=== PATIENT | male | born 1950 | race Caucasian/White ===

== ENCOUNTER 2019-06-29 21:25 | Inpatient (IN) | payer OTHER, MEDICAID ==
[~2019-06-29] VITALS: Ht 188 cm; Wt 68.0 kg
[2019-06-29 21:25] VITALS: BP 159/103
[~2019-06-29 21:25] MED LIST: ENAL10TA99 PO; GLU500 PO; [UNRECOGNIZED DRUG - CODE]; [UNRECOGNIZED DRUG - REMARK]; [UNRECOGNIZED DRUG - REMARK]
--- NOTE | 2019-06-29 21:25 | NUR ---
PT TRANSFERRED TO BED #10
[2019-06-29] MEDS ORDERED: NACL 0.9% 1,000 ML IV ONE (21:32)
--- NOTE | 2019-06-29 22:04 | NUR ---
68 Y/O BIBA ALS FROM [facility]. C/O INCREASED GENERALIZED WEAKNESS. PER REPORT FROM COAGULATION OPERATOR, PT IS NOT AT BASELINE, STAFF AT FACILITY STATES PT IS MORE WEAK AND LETHARGIC. PT'S BP WAS HYPOSTENSIVE SIDE SEAM MACHINE OPERATOR. JAUNDICE NOTED. 20G IV STARTED BY COAGULATION OPERATOR ENROUTE ALONG WITH 1L NS BOLUS. PT IS ALERT TO PERSON, PLACE DURING ASSESSMENT. HX OF DEMENTIA, HTN, DM (BS-85 ENROUTE). PT STABLE. ERMD AWARE. WILL CONTINUE TO MONITOR.
[2019-06-29 22:10] LABS: BASOPHILS % (AUTO) 0.4 % (0.0-2.0); EOSINOPHILS # (AUTO) 0.4 K/uL (0-0.4); EOSINOPHILS % (AUTO) 4.5 % (0.0-4.0); HEMATOCRIT 25.3 % (36-52); HEMOGLOBIN 8.5 g/dL (12.0-18.0); LYMPHOCYTES # (AUTO) 1.9 K/uL (2.0-11.5); LYMPHOCYTES % (AUTO) 19.6 % (20.5-51.1); MEAN CORPUSCULAR HEMOGLOBIN 33 pg (27-31); MEAN CORPUSCULAR HGB CONC 34 g/dL (33-37); MEAN CORPUSCULAR VOLUME 96.9 fL (80-94); MONOCYTES # (AUTO) 0.7 K/uL (0.8-1.0); MONOCYTES % (AUTO) 7.4 % (1.7-9.3); NEUTROPHILS # (AUTO) 6.6 K/uL (1.8-7.7); NEUTROPHILS % (AUTO) 68.1 % (42.2-75.2); PLATELET COUNT (AUTO) 100 K/uL (140-450); RED BLOOD CELL COUNT(AUTO) 2.61 MIL/uL (4.20-6.10); RED CELL DISTRIBUTION WIDTH 15.9 % (11.6-13.7); WHITE BLOOD COUNT (AUTO) 9.7 K/uL (4.8-10.8)
--- NOTE | 2019-06-29 22:20 | NUR ---
PERFORMED STRAIGHT CATH. PT TOLERATED PROCEDURE. RECEIVED 80ML RETURN.
[2019-06-29 22:28] LABS: PROTHROMBIN TIME 16.2 secs (10.8-13.4)
--- NOTE | 2019-06-29 22:28 | NUR ---
XRAY AT BEDSIDE
[2019-06-29 22:33] LABS: ALBUMIN 0.9 g/dL (3.4-5.0); ANION GAP 9.1 (8-16); CARBON DIOXIDE 30.6 mmol/L (21-32); CREATININE 0.8 mg/dL (0.7-1.3); TOTAL BILIRUBIN 2.4 mg/dL (0.0-1.0)
--- NOTE | 2019-06-29 22:34 | NUR ---
SPOKE WITH PT'S HOSPICE NURSE JANELL FRAZIER. REQUESTING PT TO BE TRANSFERRED TO [facility]. AGENCY CONTACT #
[2019-06-29 22:37] LABS: POTASSIUM 2.7 mmol/L (3.5-5.1)
[2019-06-29] MEDS ORDERED: KCL 20 MEQ/WATER INJ PREMIX 100 ML IV ONE (22:40)
--- NOTE | 2019-06-29 22:50 | NUR ---
SPOKE WITH PATTY FROM [facility]. UPDATED ABOUT PT'S STATUS.
[2019-06-29 23:03] LABS: APPEARANCE,URINE HAZY (CLEAR); BILIRUBIN,URINE 2+ (NEGATIVE); BLOOD, URINE NEGATIVE (NEGATIVE); COLOR,URINE AMBER (YELLOW); LEUKOCYTE ESTERASE ,URINE NEGATIVE (NEGATIVE); NITRITE, URINE POSITIVE (NEGATIVE); UGLUCOSE TRACE (NEGATIVE)
[2019-06-29] MEDS ORDERED: DEXTROSE 10% 250 ML IV SCH (23:05)
[2019-06-29 23:15] LABS: RBC,URINE 0-5 /HPF (0-5)
[2019-06-29] MEDS ORDERED: MORPHINE SULFATE 2 MG/ML SYR IVP PRN (23:45)
[2019-06-29] MEDS ORDERED: DOCUSATE SODIUM 100 MG GELCAP PO PRN (23:45)
[2019-06-29] MEDS ORDERED: LORazepam 2 MG/ML VIAL IM/IVP PRN (23:45)
[2019-06-29] MEDS ORDERED: ZOLPIDEM 5 MG TAB PO PRN (23:45)
[2019-06-29] MEDS ORDERED: ACETAMINOPHEN 325 MG TAB PO PRN (23:45)
[2019-06-29] MEDS ORDERED: ONDANSETRON 4 MG/2 ML VIAL IM/IVP PRN (23:45)
--- NOTE | 2019-06-30 00:20 | NUR ---
RECEIVED REPORT FROM ED RN JAYDON, FOR PT'S CONTINUITY OF CARE. PT IS AAOX2, IS ON RA, ON TAG CLERK, HAS RIGHT AC 20G SALINE LOCK. VS CHECKED AND CHARTED. EXPLAINED TO PT THE CLINICAL BIOCHEMICAL GENETICIST ROUTINE, PT VERBALIZED UNDERSTANDING, STATES HE JUST WANTS TO REST. WILL MONITOR PT THROUGHOUT SHIFT.
--- NOTE | 2019-06-30 00:20 | NUR ---
PT ADMITTED TO [facility] RM 113. TRANSFERRED PT VIA [facility] WITH [facility]; STABLE CONDITION. REPORT GIVEN TO MATTHEW FRAZIER. PT CARE TRANSFERRED TO RECEIVING RN.
[2019-06-30 00:23] LABS: PHOSPHORUS 3.2 mg/dL (2.5-4.9); THYROID STIMULATING HORMONE 7.52 uIU/mL (0.34-3.74)
[2019-06-30 00:29] LABS: CHOL/HDL RATIO 9.6 (1-4.5)
[2019-06-30] MEDS ORDERED: cefTRIAXone 1,000 MG VIAL ONE (01:03)
[2019-06-30] MEDS: NACL 0.9% 1,000 ML IV SCH ×2 (01:11→16:44)
--- NOTE | 2019-06-30 01:23 | NUR ---
ADMINISTERED SCHEDULED IV ABX AND IV FLUID ORDERED. PT TOLERATED THEM WELL. WILL CONTINUE TO MONITOR PT.
[2019-06-30] MEDS ORDERED: CEPH250C16 PO (02:06)
[2019-06-30] MEDS ORDERED: DOCU-299 PO (02:06)
[2019-06-30] MEDS ORDERED: DULO30EC PO (02:06)
[2019-06-30] MEDS ORDERED: TRAM50TA3 PO (02:06)
[2019-06-30] MEDS ORDERED: LOPE2CAP99 PO (02:06)
[2019-06-30] MEDS ORDERED: ACET-2619 PO (02:06)
[2019-06-30] MEDS ORDERED: MENT1OIN22 TP (02:06)
[2019-06-30] MEDS ORDERED: METR-435 PO (02:06)
[2019-06-30] MEDS ORDERED: MAGN400S60 PO (02:06)
[2019-06-30] MEDS ORDERED: DIVA125E11 PO (02:06)
[2019-06-30] MEDS ORDERED: SERT25TA PO (02:06)
[2019-06-30] MEDS ORDERED: BLOO1STR MC (02:06)
--- NOTE | 2019-06-30 03:00 | NUR ---
MADE ROUNDS, PT LYING DOWN ASLEEP WITH NO SIGNS OF DISTRESS. WILL CONTINUE TO MONITOR PT.
[2019-06-30 04:00] VITALS: BP 125/81
--- NOTE | 2019-06-30 04:00 | NUR ---
PT PULLED IV OUT C/O ITCHING AT THE SITE. WILL REINSERT NEW IV.
--- NOTE | 2019-06-30 04:15 | NUR ---
ASSISTED REHAB TECH IN CHANGING LINENS. VS CHECKED AND CHARTED. PT TOLERATED ACTIVITY WELL.
[2019-06-30] MEDS ORDERED: traMADol 50 MG TAB PO SCH (04:50)
[2019-06-30] MEDS ORDERED: ACETAMINOPHEN 325 MG TAB PO SCH (04:50)
[2019-06-30] MEDS ORDERED: MAG SULF 2000 MG/WATER PREMIX 100 ML IV SCH (04:50)
--- NOTE | 2019-06-30 05:45 | NUR ---
NEW IV SITE: RIGHT FA 24G. ADMINISTERED IV MAGNESIUM ORDERED. WILL CONTINUE TO MONITOR PT.
--- NOTE | 2019-06-30 06:19 | NUR ---
PT LYING DOWN ASLEEP WITH NO SIGNS OF DISTRESS. WILL ENDORSE TO AM SHIFT RN FOR PT'S CONTINUITY OF CARE.
[2019-06-30 06:45] LABS: BASOPHILS % (AUTO) 0.6 % (0.0-2.0); EOSINOPHILS # (AUTO) 0.3 K/uL (0-0.4); EOSINOPHILS % (AUTO) 4.2 % (0.0-4.0); HEMATOCRIT 26.7 % (36-52); LYMPHOCYTES # (AUTO) 1.4 K/uL (2.0-11.5); LYMPHOCYTES % (AUTO) 19.2 % (20.5-51.1); MEAN CORPUSCULAR HEMOGLOBIN 33 pg (27-31); MEAN CORPUSCULAR HGB CONC 34 g/dL (33-37); MEAN CORPUSCULAR VOLUME 96.5 fL (80-94); MONOCYTES # (AUTO) 0.5 K/uL (0.8-1.0); MONOCYTES % (AUTO) 6.8 % (1.7-9.3); NEUTROPHILS # (AUTO) 4.9 K/uL (1.8-7.7); NEUTROPHILS % (AUTO) 69.2 % (42.2-75.2); PLATELET COUNT (AUTO) 92 K/uL (140-450); RED BLOOD CELL COUNT(AUTO) 2.77 MIL/uL (4.20-6.10); RED CELL DISTRIBUTION WIDTH 15.3 % (11.6-13.7)
[2019-06-30] MEDS ORDERED: DEXTROSE 50% 50 ML SYR IVP PRN (07:00)
[2019-06-30] MEDS ORDERED: INSULIN LISPRO SLIDING SCALE 100 UNITS/ML VIAL SUBQ PRN (07:00)
[2019-06-30 07:05] LABS: ANION GAP 10.9 (8-16); CARBON DIOXIDE 30.2 mmol/L (21-32); CREATININE 0.7 mg/dL (0.7-1.3); POTASSIUM 3.1 mmol/L (3.5-5.1)
--- NOTE | 2019-06-30 07:08 | NUR ---
RECEIVED BEDSIDE REPORT FROM RESILIENT TILE INSTALLER NURSE FOR CONTINUITY OF CARE. PATIENT IS AWAKE AND RESTING ON BED AT THIS TIME. PATIENT IS AAOX2 TO NAME, AND PLACE. RESPIRATION EVEN AND UNLABORED ON RA. DENIED PAIN, DIZZINESS AND SOB AT THIS TIME. NO SIGNS OF DISTRESS NOTED. IV ON RFA 24G, WRAP AROUND WITH KERLIX, CLEAN AND INTACT, INFUSING PER MD ORDER. PATIENT IS CONTINENT AND ABLE TO USE THE URANAL BY BEDSIDE. SKIN CLEAN AND DRY. DISCUSSED PLAN OF CARE WITH PATIENT AND PATIENT VERBALIZED UNDERSTANDING. TELE MONITOR ATTACHED. SEIZURE PRECAUTION IN PLACE AND BOTH SIDE RAILS PADDED. FALL RISK PROTOCOL IN PLACE AND BED ALARM ACTIVATED. SAFETY MEASURES IN PLACE. BED IN LOW POSITION AND CALL LIGHT WITHIN REACH. INSTRUCTED PATIENT TO USE THE CALL LIGHT FOR ANY ASSISTANCE AND PATIENT WAS AWARE. Addendum: 06/30/19 at 0754 by Katie Willson RN SKIN NOT INTACT. SCABS THROUGHOUT BODY NOTED, L AND R HEELS WOUNDS NOTED, COVERED WITH OPTIFOARM, DRESSING DRY AND CLEAN.
[2019-06-30] MEDS ORDERED: LORazepam 2 MG/ML VIAL IVP PRN (07:20)
[2019-06-30] MEDS: BLOOD GLUCOSE MONITORING 1 DEV DEV FS SCH ×4 (07:30→20:13)
--- NOTE | 2019-06-30 07:54 | NUR ---
PATIENT HAS BEEN SCREENED AND CATEGORIZED MODERATE NUTRITION RISK. PATIENT WILL BE SEEN WITHIN 3-5 DAYS OF ADMISSION. 07/02/19-07/04/[address] Addendum: 06/30/19 at [address] PATIENT HAS BEEN RESCREENED AND RE-CATEGORIZED HIGH NUTRITION RISK. PATIENT WILL BE SEEN WITHIN 1-3 DAYS OF ADMISSION. 06/30/19-07/01/19- MAHSA PATEL RD
[2019-06-30 08:00] VITALS: BP 127/83
[2019-06-30 08:29] LABS: IRON, SERUM 43 ug/dl (50-175); TOTAL IRON BINDING CAPACITY < 36 ug/dl (250-450)
[2019-06-30] MEDS ORDERED: DULoxetine 30 MG CAPDR PO SCH (09:00)
[2019-06-30] MEDS ORDERED: DIVALPROEX SPRINKLES 125 MG CAPDR PO SCH (09:00)
--- NOTE | 2019-06-30 09:09 | NUR ---
PATIENT IS IN EEG WITH LABORATORY SAMPLER AT THIS TIME. NO SIGNS OF DISTRESS NOTED. SAFETY MEASURES IN PLACE.
[2019-06-30] MEDS: MAGNESIUM HYDROXIDE 2400 MG/30 ML UDC PO SCH (09:37)
[2019-06-30] MEDS: LACTOBACILLUS RHAMNOSUS GG 1 EACH CAP PO SCH (09:37)
[2019-06-30] MEDS: SERTRALINE 50 MG TAB PO SCH (09:37)
[2019-06-30] MEDS: DOCUSATE SODIUM 100 MG GELCAP PO SCH ×2 (09:38→20:12)
--- NOTE | 2019-06-30 09:38 | NUR ---
ADMINISTERED AM SCHEDULED MEDS, PATIENT TOLERATED WELL. MEDS EDUCATION PROVIDED TO PATIENT AND REINFORCEMENT NEEDED. HOLD HEPARIN SUBQ DUE TO LOW PLT COUNT FROM AM LAB. PATIENT IS AWAKE AND WATCHING TV ON BED AT THIS. DENIED PAIN, SOB, AND DIZZINESS. NO SIGNS OF DISTRESS NOTED. TELE MONITOR ATTACHED. SAFETY MEASURES IN PLACE. FALL RISK PROTOCOL AND SEIZURE PROTOCOL IN PLACE. BED ALARM ACTIVATED. BED IN LOW POSITION AND CALL LIGHT WITHIN REACH. INSTRUCTED PATIENT TO USE THE CALL LIGHT FOR ANY ASSISTANCE AND PATIENT WAS AWARE.
[2019-06-30] MEDS ORDERED: HYDRAGUARD CREAM TP SCH (10:00)
--- NOTE | 2019-06-30 10:50 | NUR ---
PATIENT IS IN ULTRASOUND PROCEDURE AND US WINDMILL TECHNICIAN IS BY BEDSIDE. NO SIGNS OF DISTRESS NOTED. TELE MONITOR ATTACHED. SAFETY MEASURES IN PLACE. FALL RISK PROTOCOL IN PLACE AND BED ALARM ACTIVATED. BED IN LOW POSITION AND CALL LIGHT WITHIN REACH.
--- NOTE | 2019-06-30 11:17 | NUR ---
PATIENT AWAKE AND RESTING ON BED AT THIS TIME. DENIED DIZZINESS, SOB AND PAIN. NO SIGNS OF DISTRESS NOTED. TELE MONITOR ATTACHED. SAFETY MEASURES IN PLACE. FALL RISK PROTOCOL AND SEIZURE PROTOCOL IN PLACE. BED ALARM ACTIVATED. BED IN LOW POSITION AND CALL LIGHT WITHIN REACH. INSTRUCTED PATIENT TO USE THE CALL LIGHT FOR ANY ASSISTANCE AND PATIENT WAS AWARE.
[2019-06-30 12:00] VITALS: BP 114/70
[2019-06-30] MEDS ORDERED: levETIRAcetam 1,000 MG in NACL 0.9% 100 ML IV SCH (12:00)
--- NOTE | 2019-06-30 12:19 | NUR ---
ADMINISTERED MED PER MD ORDER VIA IVPB, PATIENT TOLERATED WELL. MED EDUCATION PROVIDED TO PATIENT AND REINFORCEMENT NEEDED. PATIENT PATIENT AWAKE AND RESTING ON BED AT THIS TIME. DENIED DIZZINESS, SOB AND PAIN. NO SIGNS OF DISTRESS NOTED. TELE MONITOR ATTACHED. SAFETY MEASURES IN PLACE. FALL RISK PROTOCOL IN PLACE AND BED ALARM ACTIVATED. BED IN LOW POSITION AND CALL LIGHT WITHIN REACH. INSTRUCTED PATIENT TO USE THE CALL LIGHT FOR ANY ASSISTANCE AND PATIENT WAS AWARE.
--- NOTE | 2019-06-30 12:53 | NUR ---
06/30/19 RD INITIAL ASSESSMENT COMPLETED PLEASE REFER TO NUTRITION ASSESSMENT UNDER CARE ACTIVITY FOR ESTIMATED NUTRITIONAL NEEDS. RD RECOMMENDATIONS: 1. CONTINUE CCHO 60 GM TOLERATED. 2. IF PT IS HAVING DIFFICULTY CHEWING/SWALLOWING CONSIDER TEXTURE MODIFICATION PER MD/BENCH EXAMINER. 3. RECOMMEND ADDING GLUCERNA SHAKE BID TO OPTIMIZE NUTRITION INTAKE. 4. RD WILL F/U 2-3 DAYS; HIGH RISK. MAHSA WORRELL RD
--- NOTE | 2019-06-30 13:19 | NUR ---
PATIENT ATTEMPTED TO GET OUT OF BED TO USE THE BATHROOM AND BED ALARM WENT OFF. WENT IN PATIENT'S ROOM AND PROVIDED PATIENT WITH URANAL. POSITIONED PATIENT BACK ON BED COMFORTABLY WITH ASSIST FROM CNA CAREGIVER. INSTRUCTED PATIENT NOT TO GET OUT OF BED AND HE IS VERY WEAK AND FOR HIS OWN SAFETY. PROVIDED URANAL ON BEDSIDE. NO SIGNS OF DISTRESS NOTED. TELE MONITOR ATTACHED. SAFETY MEASURES IN PLACE. FALL RISK PROTOCOL IN PLACE AND BED ALARM ACTIVATED. BED IN LOW POSITION AND CALL LIGHT WITHIN REACH. INSTRUCTED PATIENT TO USE THE CALL LIGHT FOR ANY ASSISTANCE AND PATIENT WAS AWARE.
--- NOTE | 2019-06-30 13:50 | NUR ---
PROVIDED WOUND CARE ON R AND L HEELS. CLEANSED HEELS WITH NS AND PAT DRY. APPLIED ADAPTIC DRESSINGS AND COVERED WITH ADHESIVE WOUND DRESSING, OFF LOADED HEELS PRESSURE WITH HEEL PROTECTORS BILATERALLY. APPLIED HYDRAGUARD THROUGHOUT THE BODY FOR SCABS. PATIENT TOLERATED WELL. WOUND CARE EDUCATION PROVIDED TO PATIENT AND REINFORCEMENT NEEDED. PATIENT AWAKE AND WATCHING TV ON BED AT THIS TIME. NO SIGNS OF DISTRESS NOTED. TELE MONITOR ATTACHED. SAFETY MEASURES IN PLACE. BED IN LOW POSITION AND CALL LIGHT WITHIN REACH. INSTRUCTED PATIENT TO USE THE CALL LIGHT FOR ANY ASSISTANCE AND PATIENT WAS AWARE.
[2019-06-30] MEDS ORDERED: KCL 20 MEQ/WATER INJ PREMIX 200 ML IV ONE (14:50)
--- NOTE | 2019-06-30 15:25 | NUR ---
PATIENT AWAKE AND WATCHING TV AT THIS TIME. NO SIGNS OF DISTRESS NOTED. TELE MONITOR ATTACHED. SAFETY MEASURES IN PLACE. BED IN LOW POSITION AND CALL LIGHT WITHIN REACH. INSTRUCTED PATIENT TO USE THE CALL LIGHT FOR ANY ASSISTANCE AND PATIENT WAS AWARE.
[2019-06-30 16:00] VITALS: BP 102/77
--- NOTE | 2019-06-30 16:28 | NUR ---
CHECKED PATIENT'S BLOOD GLUCOSE AND RECEIVED 59, PATIENT DENIED DIZZINESS, PATIENT IS ASYMPTOMATIC. PROVIDED ORANGE JUICE TO PATIENT AND ASKED PATIENT TO FINISH IT. WILL RECHECK BLOOD GLUCOSE. NOTIFIED DR HEBERT ON REGARDS OF PATIENT'S BLOOD GLUCOSE AND DR HEBERT WAS AWARE.
--- NOTE | 2019-06-30 16:58 | NUR ---
RECHECKED AFTER PATIENT DRANK ORANGE JUICE AND RECEIVED 51, NOTIFIED DR HEBERT AND ADMINISTERED D50 VIA IVP, PATIENT IS AWAKE AND WATCHING TV. DENIED DIZZINESS, LIGHTHEADEDNESS, NAUSEA AND VOMITING. WILL RECHECK BLOOD GLUCOSE AGAIN. SAFETY MEASURES IN PLACE. BED IN LOW POSITION AND CALL LIGHT WITHIN REACH. INSTRUCTED PATIENT TO USE THE CALL LIGHT FOR ANY ASSISTANCE AND PATIENT WAS AWARE.
--- NOTE | 2019-06-30 17:18 | NUR ---
RECHECKED BLOOD GLUCOSE AFTER D50 RECEIVED 147, PATIENT AWAKE AND RESTING ON BED. EDUCATED PATIENT THAT HE HAS TO EAT ADEQUATE FOOD TO MAINTAIN HIS BLOOD GLUCOSE AND PATIENT SAID "OK, I WILL TRY TO EAT A LOT FOR DINNER." NO SIGNS OF DISTRESS NOTED. TELE MONITOR ATTACHED. SAFETY MEASURES IN PLACE. BED IN LOW POSITION AND CALL LIGHT WITHIN REACH. INSTRUCTED PATIENT TO USE THE CALL LIGHT FOR ANY ASSISTANCE AND PATIENT WAS AWARE.
--- NOTE | 2019-06-30 18:05 | NUR ---
PATIENT RECEIVED HIS DINNER TRAY, ENCOURAGED PATIENT TO EAT HIS DINNER AND DRINK HIS GLUCERNA, PATIENT SAID "OK, I WILL WORK ON IT SLOWLY." PATIENT IS DRINKING HIS GLUCERNA AND EATING THE BREAD. NO SIGNS OF DISTRESS NOTED. TELE MONITOR ATTACHED. SAFETY MEASURES IN PLACE. BED IN LOW POSITION AND CALL LIGHT WITHIN REACH. INSTRUCTED PATIENT TO USE THE CALL LIGHT FOR ANY ASSISTANCE AND PATIENT WAS AWARE.
--- NOTE | 2019-06-30 19:30 | NUR ---
RECEIVED REPORT FROM NADEEM RN DAYSHIFT NURSE AT BEDSIDE FOR CONTINUITY OF CARE, PT IN STABLE CONDITION EATING DINNER ,ALL FALLS AND SEIZURE PRECAUTIONS IN PLACE.
--- NOTE | 2019-06-30 19:30 | NUR ---
ENDORSED PATIENT AT BEDSIDE TO COMPUTER ANALYST SUPERVISOR NURSE FOR CONTINUITY OF CARE. PATIENT IS IN STABLE CONDITION. SAFETY MEASURES IN PLACE.
--- NOTE | 2019-06-30 20:00 | NUR ---
PT IN BED , HE ATE ABOUT 10% OF SUPPER, MOSTLY GLUCERNA SHAKE. PT FINGERSTICK IS 144, NO HUMALOG COVERAGE NEEDED. PT LUNG SOUNDS CLEAR AND BOWEL SOUNDS HYPOACTIVE. PT GIVEN ORDERED COLACE EDUCATION PROVIDED REGARDING MEDICATION. 2ND BAG OF POTASSIUM STILL RUNNING.IV SITE INTACT AND ASYMPTOMATIC WILL ADMINISTER IV KEPPRA WHEN FINISHED.WILL SPEAK TO RESIDENT MD REGARDING HEPARIN DUE TO PLATELETS BEING 92(L) AND PT INR HIGH. PT IS CLEAN AND DRY V/S FOLLOWS T 97.4 P 106 R 18 B/P 116/76 02 99% ON ROOM AIR. ALL FALLS AD CONTACT PRECAUTIONS IN PLACE. AND CALL KC IN REACH.
--- NOTE | 2019-06-30 21:00 | NUR ---
SPOKE WITH MD CISNEROS, HEPARIN HELD DUE TO LOW PLATELETS.
[2019-06-30] MEDS: HYDROcodone/APAP 5/325 MG 1 TAB TAB PO PRN (21:20)
[2019-06-30] MEDS: levETIRAcetam 1,000 MG in NACL 0.9% 100 ML IV SCH (21:30)
--- NOTE | 2019-06-30 21:30 | NUR ---
PT 2ND BAG OF POTASSIUM FINISHED, KAYLYNTIN SHAR AND IS RUNNING AT 220MLS/HR ORDERED. IV SITE INTACT AND ASYMPTOMATIC. PT GIVEN REQUESTED NORCO FOR MODERATE PAIN AND BENADRYL FOR C/O OF ITCHINESS. ALL OTHER REQUESTED NEEDS ATTENDED, PT MADE COMFORTABLE IN BED ALL CONTACT AND SEIZURE PRECAUTIONS IN PLACE .
[2019-07-01] VITALS: BP 114/84
--- NOTE | 2019-07-01 | NUR ---
PT IN BED V/S FOLLOWS T 97.6 P 105 R 18 B/P 114/84 02 97% ON ROOM AIR. PT TURNED, CHANGED AND REPOSITIONED IN BED NO S/S OF PAIN OR DISTRESS NOTED.
--- NOTE | 2019-07-01 02:00 | NUR ---
ROUNDS DONE NO S/S OF PAIN OR DISTRESS NOTED, PT IN BED SLEEPING ALL FALLS PRECAUTIONS IN PLACE, IV SITE INTACT AND RUNNING NS AT 60MLS/HR ORDERED.
--- NOTE | 2019-07-01 05:30 | NUR ---
PT AM FINGERSTICK IS 70 NO HUMALOG COVERAGE NEEDED. PT GIVEN OJ BUT ONLY TOOK A FEW SIPS, PT NEEDS ENCOURAGEMENT FOR PO INTACT. HEEL DRESSINGS REDONE DUE TO SOME DRAINAGE ON BANDAGES. ALL FALLS PRECAUTIONS IN PLACE.
[2019-07-01] MEDS: BLOOD GLUCOSE MONITORING 1 DEV DEV FS SCH ×4 (06:34→21:00)
--- NOTE | 2019-07-01 07:15 | NUR ---
RECEIVED REPORT FROM NIGHT NURSE. PT AWAKE AAOX2. DENIES PAIN. NO DISTRESS NOTED. RESPIRATIONS EVEN AND UNLABORED ON ROOM AIR, CLEAR BREATH SOUNDS. IV IN PLACE PATENT AND ASYMPTOMATIC INFUSING PER ORDER IN R FA 22G. SCABS PRESENT ON L AND R HEEL, AND LEGS BILATERALLY. BED IN LOW POSITION. SAFETY MEASURES IN PLACE. CALL LIGHT WITHIN REACH. WILL CONTINUE TO MONITOR.
--- NOTE | 2019-07-01 07:15 | NUR ---
REPORT GIVEN TO SHAUNNA AT BEDSIDE FOR CONTINUITY OF CARE, PT IN STABLE CONDITION.
[2019-07-01 08:00] VITALS: BP 151/84
[2019-07-01] MEDS: LACTOBACILLUS RHAMNOSUS GG 1 EACH CAP PO SCH (08:51)
[2019-07-01] MEDS: DOCUSATE SODIUM 100 MG GELCAP PO SCH ×2 (08:51→22:08)
[2019-07-01] MEDS: MAGNESIUM HYDROXIDE 2400 MG/30 ML UDC PO SCH (08:51)
[2019-07-01] MEDS: SERTRALINE 50 MG TAB PO SCH (08:52)
[2019-07-01] MEDS: NACL 0.9% 1,000 ML IV SCH (09:02)
--- NOTE | 2019-07-01 09:05 | NUR ---
MEDICATIONS ADMINISTERED PER ORDER. PT TOLERATED WELL. NO DISTRESS NOTED. SAFETY MEASURES IN PLACE. WILL CONTINUE TO MONITOR.
[2019-07-01] MEDS: levETIRAcetam 1,000 MG in NACL 0.9% 100 ML IV SCH ×2 (09:11→22:05)
--- NOTE | 2019-07-01 11:02 | NUR ---
WOUND ASSESSMENT DONE AT THIS TIME. DRESSING CLEAN AND DRY. DRESSING REENFORCED. LINENS CHANGED AND PT REPOSITIONED. SAFETY MEASURES IN PLACE. CALL LIGHT WITHIN REACH. WILL CONTINUE TO MONITOR.
[2019-07-01 11:03] LABS: BASOPHILS # (AUTO) 0.1 K/uL (0.00-0.22); EOSINOPHILS # (AUTO) 0.4 K/uL (0-0.4); EOSINOPHILS % (AUTO) 5.1 % (0.0-4.0); HEMATOCRIT 28.3 % (36-52); HEMOGLOBIN 9.4 g/dL (12.0-18.0); LYMPHOCYTES # (AUTO) 1.7 K/uL (2.0-11.5); LYMPHOCYTES % (AUTO) 23.5 % (20.5-51.1); MEAN CORPUSCULAR HEMOGLOBIN 32 pg (27-31); MEAN CORPUSCULAR HGB CONC 33 g/dL (33-37); MEAN CORPUSCULAR VOLUME 97.7 fL (80-94); MONOCYTES # (AUTO) 0.6 K/uL (0.8-1.0); MONOCYTES % (AUTO) 8.2 % (1.7-9.3); NEUTROPHILS # (AUTO) 4.6 K/uL (1.8-7.7); NEUTROPHILS % (AUTO) 62.2 % (42.2-75.2); PLATELET COUNT (AUTO) 97 K/uL (140-450); RED CELL DISTRIBUTION WIDTH 15.7 % (11.6-13.7); WHITE BLOOD COUNT (AUTO) 7.4 K/uL (4.8-10.8)
[2019-07-01 11:25] LABS: ANION GAP 10.6 (8-16); CARBON DIOXIDE 28.9 mmol/L (21-32); CREATININE 0.7 mg/dL (0.7-1.3); POTASSIUM 3.5 mmol/L (3.5-5.1)
--- NOTE | 2019-07-01 11:25 | NUR ---
RECEIVED CALL FROM PTS SON, GAVE HIM UPDATE. HE SAID HE WILL BE STOPPING BY TO VISIT PT SOON.
[2019-07-01 11:29] LABS: PHOSPHORUS 2.2 mg/dL (2.5-4.9)
[2019-07-01 12:09] LABS: FOLIC ACID 8.7 ng/mL (>3.0)
--- NOTE | 2019-07-01 13:20 | NUR ---
ROUNDS DONE AT THIS TIME. PT IN BED AWAKE. DENIES PAIN. NO DISTRESS NOTED. SAFETY MEASURES IN PLACE. CALL LIGHT WITHIN REACH. WILL CONTINUE TO MONITOR.
[2019-07-01] MEDS ORDERED: MAG SULF 2000 MG/WATER PREMIX 100 ML IV ONE (15:40)
--- NOTE | 2019-07-01 15:48 | NUR ---
MEDICATIONS ADMINISTERED PER ORDER. PT TOLERATED WELL. NO DISTRESS NOTED. DENIES PAIN. SAFETY MEASURES IN PLACE. WILL CONTINUE TO MONITOR. PT HAS REMOVED AND REFUSES PURPLE HEEL CUSHIONS.
[2019-07-01] MEDS ORDERED: LACTULOSE 20 GM/30 ML UDC PO SCH (15:50)
[2019-07-01 16:00] VITALS: BP 148/84
--- NOTE | 2019-07-01 18:50 | NUR ---
PT IN BED ASLEEP. RESPIRATIONS EVEN AND UNLABORED ON ROOM AIR. NO DISTRESS NOTED. SAFETY MEASURES IN PLACE. CALL LIGHT WITHIN REACH. WILL CONTINUE TO MONITOR.
--- NOTE | 2019-07-01 19:20 | NUR ---
BEDSIDE REPORT GIVEN TO NIGHT NURSE FOR CONTINUITY OF CARE.
--- NOTE | 2019-07-01 20:00 | NUR ---
PT IN BED, IV SITE ON R /F/A INTACT AND ASYMPTOMATIC RUNNING N/S AT 60MLS/HR ORDERED . PT WAS TURNED AND REPOSITIONED IN BED HEEL DRESSING ON AND INTACT. V/S FOLLOWS: T 97.6 P 88 R 18 B/P 125/74 02 97% ON ROOM AIR. ALL FALLS PRECAUTIONS IN PLACE.
--- NOTE | 2019-07-01 21:00 | NUR ---
PT IN BED GIVEN KEPPRA IV ORDERED, WELL COLACE AND LACTULOSE . HEPARIN WAS HELD DUE TO LOW PLATELETS, MD CISNEROS CONSULTED REGARDING HEPARIN ORDER AND ALSO RECOMMENDED TO HOLD HEPARIN SHOT AT THIS TIME. EDUCATION REGARDING MEDICATION PROVIDED. PT ALSO REORIENTED TO PLACE, TIME AND DATE AFTER ASKING WHERE HE IS AND WHY. PT WAS REMINDED WHERE HE IS AND WHY HE IS HE, HE THEN VERBALIZED UNDERSTANDING. PT ABLE TO USE URINAL AT BEDSIDE. URINE WAS DARK AVA AND 300MLS. PT FINGERSTICK IS 76, PT GIVEN JUICE WELL APPLESAUCE WITH MEDICATION FOR A DIABETIC SNACK. ALL FALLS PRECAUTION IN PLACE.
[2019-07-01] MEDS: LACTULOSE 20 GM/30 ML UDC PO SCH (22:06)
[2019-07-01] MEDS: HYDROcodone/APAP 5/325 MG 1 TAB TAB PO PRN (22:07)
--- NOTE | 2019-07-01 22:15 | NUR ---
PT C/O OF PAIN AND ITCHINESS, PT GIVEN BENADRYL PO AND NORCO PO FOR 6/10 GENERALIZED PAIN. WILL MONITOR FOR RELIEF.
[2019-07-02] VITALS: BP 113/80
--- NOTE | 2019-07-02 00:30 | NUR ---
PT IN BED, HE WAS TURNED, CHANGED AND REPOSITIONED IN BED, HEEL PROTECTORS ON AND DRESSINGS INTACT IV SITE ASYMPTOMATIC AND RUNNING NS ORDERED ALL FALLS PRECAUTIONS IN PLACE.
[2019-07-02] MEDS: NACL 0.9% 1,000 ML IV SCH ×2 (01:42→18:26)
[2019-07-02 07:31] LABS: BASOPHILS % (AUTO) 0.9 % (0.0-2.0); EOSINOPHILS # (AUTO) 0.3 K/uL (0-0.4); EOSINOPHILS % (AUTO) 6.3 % (0.0-4.0); HEMATOCRIT 26.6 % (36-52); HEMOGLOBIN 9.1 g/dL (12.0-18.0); LYMPHOCYTES # (AUTO) 1.3 K/uL (2.0-11.5); LYMPHOCYTES % (AUTO) 24.7 % (20.5-51.1); MEAN CORPUSCULAR HEMOGLOBIN 33 pg (27-31); MEAN CORPUSCULAR HGB CONC 34 g/dL (33-37); MEAN CORPUSCULAR VOLUME 96.9 fL (80-94); MONOCYTES # (AUTO) 0.5 K/uL (0.8-1.0); MONOCYTES % (AUTO) 8.8 % (1.7-9.3); NEUTROPHILS # (AUTO) 3.2 K/uL (1.8-7.7); NEUTROPHILS % (AUTO) 59.3 % (42.2-75.2); PLATELET COUNT (AUTO) 83 K/uL (140-450); RED BLOOD CELL COUNT(AUTO) 2.74 MIL/uL (4.20-6.10); RED CELL DISTRIBUTION WIDTH 16.1 % (11.6-13.7); WHITE BLOOD COUNT (AUTO) 5.5 K/uL (4.8-10.8)
[2019-07-02] MEDS: BLOOD GLUCOSE MONITORING 1 DEV DEV FS SCH ×3 (07:41→16:41)
[2019-07-02 07:42] LABS: ANION GAP 13.2 (8-16); CARBON DIOXIDE 26.3 mmol/L (21-32); CREATININE 0.7 mg/dL (0.7-1.3); POTASSIUM 3.5 mmol/L (3.5-5.1)
[2019-07-02 07:51] LABS: ALBUMIN 0.9 g/dL (3.4-5.0); BILIRUBIN,DIRECT 1.9 mg/dL (0.0-0.3); TOTAL BILIRUBIN 2.3 mg/dL (0.0-1.0)
[2019-07-02 07:52] LABS: MAGNESIUM 1.4 mg/dL (1.8-2.4); PHOSPHORUS 2.2 mg/dL (2.5-4.9)
--- NOTE | 2019-07-02 08:19 | NUR ---
RECEIVED BEDSIDE HANDOFF REPORT FROM PM RN PT AWAKE IN BED PT APPEARS STABLE AND IN NO APPARENT DISTRESS. ALL SAFETY MEASURES ARE IN PLACE WILL CONTINUE TO MONITOR
[2019-07-02 08:52] VITALS: BP 127/79
[2019-07-02] MEDS: LACTULOSE 20 GM/30 ML UDC PO SCH ×2 (09:02→22:22)
[2019-07-02] MEDS: MAGNESIUM HYDROXIDE 2400 MG/30 ML UDC PO SCH (09:02)
[2019-07-02] MEDS: levETIRAcetam 1,000 MG in NACL 0.9% 100 ML IV SCH ×2 (09:02→22:21)
[2019-07-02] MEDS: DOCUSATE SODIUM 100 MG GELCAP PO SCH ×2 (09:02→22:22)
[2019-07-02] MEDS: LACTOBACILLUS RHAMNOSUS GG 1 EACH CAP PO SCH (09:03)
[2019-07-02] MEDS: SERTRALINE 50 MG TAB PO SCH (09:03)
--- NOTE | 2019-07-02 09:34 | NUR ---
FREQUENT ROUNDING ON PT APPEARS STABLE AND IN NO APPARENT DISTRESS. ALL SAFETY MEASURES ARE IN PLACE WILL CONTINUE TO MONITOR
--- NOTE | 2019-07-02 11:18 | NUR ---
WOUND CARE EVALUATION NOTE: REASON FOR EVALUATION: VASCULAR ULCER WOUNDS SKIN ASSESSMENT DONE WITH THIS 68 Y/O MALE PT ADMITTED FROM SNF TO [facility] WITH INITIAL DX OF SEIZURE. PAST MEDICAL HX INCLUDES COPD, DM, HTN, SEIZURE AND DEMENTIA. ALL ABOVE INFORMATION OBTAINED FROM ADMISSION H&P. PT IS AWAKE. SKIN IS WARM AND DRY, POOR SKIN TURGOR. BLE NO HAIR GROWTH, NO EDEMA TO BILATERAL LOWER LEGS. BILATERAL DORSAL PEDAL PULSES PRESENT AND NORMAL THICKEN FUNGAL NAILS OBSERVED. PLAN OF CARE DISCUSSED WITH PRIMARY RN AND PT. PT. VERBALIZING UNDERSTANDING, NEED REINFORCEMENT. INTEGUMENTARY: -GENERAL DRY RASHES TO EXTREMITIES AND TRUNK OF BODY -MULTIPLE DRY BROWN SCABS TO UPPER ARMS, BLE, DORSAL FEET AND TOES WITH LARGEST BROWN SCAB TO LEFT MEDIAL LOWER LEG 3X2CM -VASCULAR ULCER TO RIGHT MEDIAL MALLEOLUS, 1.5X1 WOUND BED IS 100% YELLOW SLOUGH TISSUE MOIST, NO ODOR, WOUND EDGE FLAT AND SIDDHARTH WOUND SKIN HYPERPIGMENTATION, PAIN 3/10 -VASCULAR ULCER TO LEFT MEDIAL MALLEOLUS ANKLE, 3X2CM WOUND BED IS 100% YELLOW SLOUGH TISSUE MOIST, NO ODOR, WOUND EDGE FLAT AND SIDDHARTH WOUND SKIN WITH HYPERPIGMENTATION, PAIN 3/10 -LEFT AND RIGHT HEELS THIN CALLUS NO OPEN ACTIVE WOUNDS -BLANCHABLE REDNESS TO SACRALCOCCYX AND BUTTOCKS RECOMMENDATIONS: -VENOUS/ANTERIORA ULTRASOUNDS TO BILATERAL LOWER EXTREMITIES -PAINT WITH BETADINE SOLUTION TO UPPER ARMS, BLE, DORSAL FEET AND TOES BID AND EZEKIEL -CLEANSE RIGHT AND LEFT MEDIAL MALLEOLUS WITH NS AND GAUZE, PAT DRY, APPLY HYDROCOLLOID DRESSING, AND COVER WITH DRY DRESSING CHANGE Q72 HOURS AND PRN WITH SOILING. -APPLY HYDRAGUARD TO EXTREMITIES AND TRUNK OF BODY, SACRALCOCCYX AND BUTTOCKS BID AND EZEKIEL -APPLY HEEL RAISER TO RIGHT HEEL AT ALL TIMES -OFFLOAD BILATERAL HEELS BY PLACING PILLOWS UNDER CALVES UNLESS OTHERWISE CONTRAINDICATED -PRESSURE REDISTRIBUTION SURFACE THERAPY -TURN AND REPOSITION Q2H, OFFLOAD SACRALCOCCYX BY TURNING RIGHT AND LEFT -CONTINUE TO FOLLOW RD RECOMMENDATIONS ALL ABOVE RECOMMENDATIONS DISCUSSED WITH PRIMARY RN Addendum: 07/02/19 at 1123 by Cathleen Willson RN (Grace) DR. BEDOYA NOTIFIED ABOVE RECOMMENDATIONS.
[2019-07-02] MEDS ORDERED: GAUZE TP SCH (13:00)
[2019-07-02] MEDS ORDERED: HYDRAGUARD CREAM TP SCH (13:00)
[2019-07-02] MEDS ORDERED: MAG SULF 2000 MG/WATER PREMIX 100 ML IV SCH (14:00)
--- NOTE | 2019-07-02 15:06 | NUR ---
Senior Attorney Note: Basic Screen: Yes High Risk DC Screen Yes Name: KENROY PENA Ferguson Relationship: SON Pre-Admission Living Arrangements: Other Other: ASSISTED LIVING - [facility] Prior ADL Needs Assistance Current Home Health Name/Tel: N/A Current DME/02 Name/Tel: WHEELCHAIR, WALKER, HOSPITAL BED Current Hospice Name/Tel: [facility] Current Dialysis Name/Tel: N/A Healthcare Decision Maker: Next of Kin Other: SON Advance Directive No Physician Orders for Life Sustaining Treatment Form No Patient/Family Have Educational Needs No Needs Additional Education: No Discipline: Case Mgt/Social Svcs Tentative Discharge Plan/Destination: SNF/ECF Other: PT, IVs Will require assistance post discharge: No Referred to Foreign Agent: No Tentative Discharge Plan Summary: Patient is a 68 year old male admitted for sepsis. Patient was admitted from [facility]. Patient has past medical hx of seizure d/o, COPD, DM, HTN, and dementia. MIKE contacted [employer] and spoke to Kira [phone]. Kira stated that patient is currently on hospice ([facility]) and utilizes a wheelchair, walker, and hospital bed. Kira stated that patient is dependent with ADLs. Kira also reported that the assisted living has non-medical staff. MIKE informed Kira that patient's tentative plan after discharge is to go to a SNF for PT and IV antibiotics. Kira stated that patient may return after SNF. No further needs identified. Signature: MAXIMO Hernández Date: Jul 02, 2019 Time: 15:01
--- NOTE | 2019-07-02 16:05 | NUR ---
[employer]NE [employer] FAXED ALL PAPER WORK TO [facility] SPOKE WITH SRI, ANMOL PT AND CAN GO TO ROOM 220C AND [facility] WILL ARRANGE TRANSPORT ORAL PATHOLOGIST TIME WITH IN 2 HRS # TO GIVE REPORT [phone] NOTIFIED CAT FRAZIER
[2019-07-02] MEDS ORDERED: ATI2I IM/IVP (16:13)
[2019-07-02] MEDS ORDERED: HUMSLIDE SUBQ (16:13)
[2019-07-02] MEDS ORDERED: HEPA500056 SUBQ (16:13)
[2019-07-02] MEDS ORDERED: MORP2SOL18 IVP (16:13)
[2019-07-02] MEDS ORDERED: ONDA2SOL45 IM/IVP (16:13)
[2019-07-02] MEDS ORDERED: ZOLP5TAB1 PO (16:13)
[2019-07-02] MEDS ORDERED: ATI2I IVP (16:13)
[2019-07-02] MEDS ORDERED: LACT10CA PO (16:13)
[2019-07-02] MEDS ORDERED: LACT10SO11 PO (16:13)
[2019-07-02] MEDS ORDERED: DIPH25SG5 PO (16:13)
[2019-07-02] MEDS ORDERED: D50SYR IVP (16:13)
[2019-07-02] MEDS ORDERED: ACET-1182 PO (16:13)
[2019-07-02] MEDS ORDERED: CEFT1SOL1 IV (16:17)
--- NOTE | 2019-07-02 16:36 | NUR ---
CALLED PT SON AT [phone] PT SON STATED HE WOULD PREFER THAT THE FATHER GO TO [place] INSTEAD OF [place]. ALREADY [place] AND HAVE TRANSPORTATION ARRANGED. INFORMED CASE MANAGEMENT
[2019-07-02 16:41] VITALS: BP 97/65
[2019-07-02] MEDS ORDERED: SODIUM PHOS / POTASSIUM PHOS 1 PKT PDR PO SCH (17:00)
--- NOTE | 2019-07-02 17:13 | NUR ---
SPOKE TO THE SON KELVIN AND HE AGREED ON TRANSFERRING TO [facility].
[2019-07-02 17:34] VITALS: BP 95/67
--- NOTE | 2019-07-02 17:44 | NUR ---
FREQUENT ROUNDING ON PT PT APPARENT DISTRESS. ALL SAFETY MEASURES ARE IN PLACE WILL CONTINUE TO MONITOR.
--- NOTE | 2019-07-02 19:26 | NUR ---
ENDORSED PT TO PM RN PT READY FOR TRANSFER. CALLED GAVE REPORT. PT SON AWARE OF TRANSFER. ALL SAFETY MEASURES ARE IN PLACE
--- NOTE | 2019-07-02 19:27 | NUR ---
RECEIVED REPORT FROM NIGHT NURSE. PT AWAKE AAOX2. DENIES PAIN. NO DISTRESS NOTED. RESPIRATIONS EVEN AND UNLABORED ON ROOM AIR, CLEAR BREATH SOUNDS. IV IN PLACE PATENT AND ASYMPTOMATIC INFUSING PER ORDER IN R FA 22G. SCABS PRESENT ON L AND R HEEL AND ANKLE, BILATERAL TOES AND FEET. SCABS ON MULTIPLE AREAS OF THE UE ALSO PRESENT. BED IN LOW POSITION. SAFETY MEASURES IN PLACE. CALL LIGHT WITHIN REACH. WILL CONTINUE TO MONITOR.
[2019-07-02 20:00] VITALS: BP 101/67
--- NOTE | 2019-07-02 21:00 | NUR ---
PT PLATELET IS [address] FANG AWARE, HELD HEPARIN SQ
--- NOTE | 2019-07-02 21:00 | NUR ---
PT'S BLOOD GLUCOSE 150 MG/DL NO INSULIN COVERAGE
--- NOTE | 2019-07-02 22:21 | NUR ---
PT MEDS GIVEN LATE PT WAS SUPPOSED TO BE DISCHARGE BUT STILL NO OVERSIZE LOAD PILOT ESCORT
--- NOTE | 2019-07-02 22:40 | NUR ---
ASKED FABRIC CUTTER SHASHI, CHARGE NURSE IF PATIENT IS REALLY FOR DISCHARGE. BECAUSE TRANSPO SERVICE STILL NOT HERE. FOLLOWED UP TRANSPO SERVICE BY FABRIC CUTTER
--- NOTE | 2019-07-02 23:45 | NUR ---
PT PICKED UP BY NON-EMERGENCY TRANSPORTATION. TRANSFERRED TO [facility] BY 2 EMT'S BP= 101/67' 98.5 F, 90, 98% 02 PT DENIES PAIN
[2019-07-05] MEDS ORDERED: HYDROCOLLOID DRESSING TP SCH (09:00)
== END 2019-07-02 23:45 | DRG 100 ==
LOC: MED 21:25 → MTU 23:54
PROVIDERS: ADMIT General Practice; ATTEND General Practice
PROC: 4A00X4Z Measurement of Central Nervous Electrical Activity, External Approach (ICD-10-PCS; principal; 2019-06-30)
DX: G40.909 Epilepsy, unspecified, not intractable, without status epilepticus (principal); E43 Unspecified severe protein-calorie malnutrition; Z68.1 Body mass index [BMI] 19.9 or less, adult; N12 Tubulo-interstitial nephritis, not specified as acute or chronic; K72.90 Hepatic failure, unspecified without coma; E11.65 Type 2 diabetes mellitus with hyperglycemia; I10 Essential (primary) hypertension; F03.90 Unspecified dementia, unspecified severity, without behavioral disturbance, psychotic disturbance, mood disturbance, and anxiety; J44.9 Chronic obstructive pulmonary disease, unspecified; E87.6 Hypokalemia; D69.6 Thrombocytopenia, unspecified; Z96.649 Presence of unspecified artificial hip joint
CPT/HCPCS: 36415; 70450; 71045; 76700; 80048; 80053; 80076; 81001; 82140; 82607; 82728; 82746; 82948; 83036; 83540; 83605; 83690; 83735; 83880; 84100; 84134; 84443; 84484; 85025; 85045; 85610; 87040; 87081; 87086; 93005; 93880; 95816; 96361; 96365; 97530; 99291; J0696; J1644; J1815; J1953; J3475; J3480; J7030; J7060; Q0092; Q0163